=== PATIENT | female | born 1960 | race Caucasian/White ===

== ENCOUNTER → 2020-11-21 | Outpatient (REF) ==
--- NOTE | 2020-11-21 11:15 | REP ---
INDICATION: PAIN COMPARISON: None. TECHNIQUE: Internal rotation, external rotation, and Y view. FINDINGS: No acute fracture or dislocation. The acromioclavicular and glenohumeral joints are intact and essentially age-appropriate. Minimal cortical irregularity at the acromioclavicular joint noted. No periarticular calcifications or degenerative changes are appreciated. Sub acromial space is normal. Surrounding soft tissues are unremarkable. IMPRESSION: Essentially age-appropriate right shoulder radiographs. <Electronically signed by Benny Funez > 11/21/20 1111
--- NOTE | 2020-11-21 11:16 | REP ---
INDICATION: PAIN COMPARISON: None. TECHNIQUE: AP and frog-lateral views of the right hip FINDINGS: Generalized age-related changes include subtle increased sclerosis to the acetabulum with minimal joint space narrowing. No further overt osteoarthritic or significant degenerative changes are appreciated. No evidence for acute or healed injury. Surrounding soft tissues are normal. IMPRESSION: Mild generalized age-related changes. <Electronically signed by Benny Funez > 11/21/20 1114
--- NOTE | 2020-11-21 11:18 | REP ---
INDICATION: PAIN. COMPARISON: None. TECHNIQUE: AP, lateral, swimmer's, and open-mouth views of the cervical spine FINDINGS: Generalized osteopenia. Advanced multilevel degenerative changes include endplate sclerosis, osteophytosis and disc space narrowing. There is mild chronic anterolisthesis at the C3-4 level of approximately 2 mm. No acute fracture/compression injury or subluxation. IMPRESSION: Generalized osteopenia and advanced multilevel degenerative spondylosis. <Electronically signed by Benny Funez > 11/21/20 8836
== END ==
LOC: M PLAIMG 10:02
PROVIDERS: ATTEND Internal Medicine
DX: M54.2 Cervicalgia (principal); M25.551 Pain in right hip; M25.511 Pain in right shoulder